=== PATIENT | female | born 1970 | race Caucasian/White ===

== ENCOUNTER 2023-07-04 07:11 | Day surgery (SDC) | payer BC, SELFPAY ==
[2023-07-02 13:51] VITALS: BMI 28.3
--- NOTE | 2023-07-03 10:52 | HO.ANESPROP2 ---
Documented by User: Jane Gomez NP 07/03/23 10:52 HPI - Anesthesia Eval Consult details Narrative: 53yo F for Upper Endoscopy and Colonoscopy [facility] Past Medical History Medical History Liver disease GERD (gastroesophageal reflux disease) Celiac disease Surgical History Surgical History History of esophagogastroduodenoscopy (EGD) Social History Social History Patient Tobacco Use Status: Never used Tobacco Use of substances other than those prescribed or required for medical reasons: No Are you DNR?: No Advance Directives: No Advance Directives Information Provided: Yes Meds Allergies Allergy/AdvReac Type Severity Reaction Status Date / Time Penicillins [PENICILLINS] Allergy Unknown RASH Verified 07/04/23 07:42 Home Medications Medication Instructions Recorded Confirmed Last Taken Type No Known Home Meds 08/16/22 07/02/23 Unknown History Exam Exam Date and Time: July 03, 2023 1052 Height,Weight and Vital Signs: Height 5 ft 6.5 in Weight 80.739 kg Assessment and Plan Assessment Anesthesia Assessment: Chart Reviewed Documented by User: Clarisa Petty MD 07/04/23 08:27 [facility] Past Medical History Medical History Liver disease GERD (gastroesophageal reflux disease) Celiac disease Surgical History Surgical History History of esophagogastroduodenoscopy (EGD) History of Problems with Anesthesia: No Social History Social History Patient Tobacco Use Status: Never used Tobacco Use of substances other than those prescribed or required for medical reasons: No Are you DNR?: No Advance Directives: No Advance Directives Information Provided: Yes Meds Allergies Allergy/AdvReac Type Severity Reaction Status Date / Time Penicillins [PENICILLINS] Allergy Unknown RASH Verified 07/04/23 07:42 Home Medications Medication Instructions Recorded Confirmed Last Taken Type No Known Home Meds 08/16/22 07/02/23 Unknown History Exam Airway Mallampati Class: II TM Dist: >3cm Neck ROM: Full Loose/Missing/Broken Teeth: No Heart: RRR Lungs: CTA Assessment and Plan Assessment Anesthesia Assessment: Anesthesia Plan Discussed Final Anesthetic Review History of Problems with Anesthesia: No NPO: Yes ASA Class: II Final Preanesthetic Review: Meds/Allgs Chart Reviewed, Consent Obtained/Reviewed and Anes Risks/Benef Reviewed Patient Risk: Low Procedure Risk: Intermediate Anesthetic Plan Anesthetic Plan: MAC: Disposition: Standard PACU
[2023-07-04 07:15] VITALS: BMI 26.1
[2023-07-04 07:27] VITALS: BP 125/68; PULSE 79; RESP 16; TEMP 36.8; O2SAT 97
[2023-07-04] MEDS: Lactated Ringers 1,000 ML 100 ML IVCONT (07:43)
--- NOTE | 2023-07-04 07:55 | MHC.SHP ---
Pre-Procedural Eval Section A Date of Service: 07/04/23 Section B Chief Complaint: screening,gerd Details of Present Illness: see H&P no changes Relevant Family History (Specify if Yes): No Relevant Social History: None Present Medications: see Short Stay Collaborative assessment Medical History: No relevant PMH History of Previous Operations: No relevant previous surgery Allergies: Allergies Allergy/AdvReac Type Severity Reaction Status Date / Time Penicillins [PENICILLINS] Allergy Unknown RASH Verified 07/04/23 07:42 Review of Systems Sugical H&P ROS: Negative: Constitution, Cardiovascular, Respiratory, Neurological, Psychiatric, Hem-Onc, Allergic/Immunologic, Gastrointestinal, Genitourinary, Musculoskeletal, Integumentary, Endocrine and Eyes/Ears/Nose/Throat Plan I have reviewed the history and physical and performed a pertinent physical examination on my patient. No changes have occurred unless specified. Time Spent With Patient Time: Total time managing care of this patient today ____ minutes.
[2023-07-04 08:45] VITALS: BP 107/60; PULSE 58; RESP 18; TEMP 36.3; O2SAT 100
--- NOTE | 2023-07-04 08:46 | PM.OP ---
Brief Operative Note Date of Service: 07/04/23 Pre-op diagnosis: see H&p Post-op diagnosis: same Procedure: egd colon Surgeon: Patrick Pacheco MD Anesthesia: MAC Was an Respiratory Care Technician used for this Procedure?: No Estimated blood loss (mL): 2 Pathology: other Disposition: PACU
[2023-07-04 09:01] VITALS: BP 113/68; PULSE 65; RESP 18; TEMP 36.3; O2SAT 97
--- NOTE | 2023-07-04 09:50 | OP_ITS ---
DATE OF SERVICE: 07/04/2023 SURGEON: Patrick Pacheco MD INDICATIONS: 1. Epigastric pain and nausea. 2. Celiac disease. 3. Colon cancer screening. PREOPERATIVE DIAGNOSIS: POSTOPERATIVE DIAGNOSIS: PROCEDURE PERFORMED: Upper endoscopy with biopsy, colonoscopy to the terminal ileum with biopsy. ESTIMATED BLOOD LOSS: COMPLICATIONS: ANESTHESIA: Monitored anesthesia care. ASSISTANTS: SPECIMENS: DESCRIPTION OF PROCEDURE: A history and physical was performed. The risks and benefits of the procedure were explained to the patient, and informed consent was obtained. The patient was placed in the left lateral decubitus position. The Olympus video gastroscope was introduced into the esophagus, stomach, and duodenum. Examination was performed. The scope was removed. She was repositioned for colonoscopy. A digital rectal exam was performed and was found to be normal. The Olympus pediatric video colonoscope was introduced into the rectum and advanced to the cecum. The cecum was identified by transillumination, palpation, and identification of ileocecal valve examination was performed. The scope was removed. She tolerated the procedures well and was returned to the recovery area in stable condition. FINDINGS: Upper endoscopy: 1. Esophagus: There was erosive esophagitis involving the last 1 to 2 cm of the esophagus with linear ulcerations. Biopsies were obtained from the EG junction. 2. Stomach: The stomach showed no evidence of masses, ulcers, or polyps. The antral biopsies were obtained to rule out H pylori. 3. Duodenum: The bulb and 2nd portion looked fairly normal. Biopsies were obtained from the 2nd portion given her history of celiac disease. Colonoscopy: The terminal ileum was normal. The visualized colonic mucosa was normal. The quality of prep was good. Random biopsies were obtained to evaluate for microscopic or collagenous colitis from the sigmoid. Retroflexed examination was normal. IMPRESSION: 1. Erosive esophagitis. 2. Normal colonoscopy. RECOMMENDATION: 1. Follow up the biopsy results. 2. Omeprazole 20 mg daily pending biopsy results. MD SHAUNA Arreola/EMIL / [id number]
--- NOTE | 2023-07-10 08:43 | PM.EVENT ---
Event Note Date of Service: 07/04/23 Event Note: Addendum to 07/04/23 operative note Repeat colonoscopy is recommended in 10 years for average risk individuals. Time Spent With Patient Time: Total time managing care of this patient today 30 minutes.
== END 2023-07-04 09:50 | disposition home or self-care (01) ==
PROVIDERS: PCP Internal Medicine; Visit Provider Internal Medicine Gastroenterology
PROC: (CPT 45380; principal; 2023-07-04 08:00)
DX: Z12.11 Encounter for screening for malignant neoplasm of colon (principal); K90.0 Celiac disease; K22.10 Ulcer of esophagus without bleeding; K21.9 Gastro-esophageal reflux disease without esophagitis; K29.50 Unspecified chronic gastritis without bleeding; Z79.899 Other long term (current) drug therapy
CPT/HCPCS: 45380; 43239; 88305; 88312; 88342; J2704